=== PATIENT | male | born 1940 | race Caucasian/White ===

== ENCOUNTER → 2020-03-31 | Outpatient (CLI) | payer MEDICARE, OTHER, SELFPAY ==
--- NOTE | 2020-03-31 | IMM_PTH ---
PATIENT: KINGSTON KILGORE LOC: [facility] U#:[id number] AGE/SX: 79/M ROOM: RE03/31/[address]: Dr. Joel Pierson MD : 1940 BED: DIS: 03/31/2020 SPEC #: [id number] RECD: 04/01/20 13:34 STATUS: SOM REQ #: [id number] RUBY: 03/31/20 00:[address]: Joel Pierson DEPT: IMMUNOHISTOCHEMISTRY RECD BY: Cydney uLna ENTERED: 04/01/20 13:36 SP TYPE: IMMUNO OTHR DR: Dr. Karla Singh, DO Tissues: A - PROSTATE RIGHT C - PROSTATE RIGHT D - PROSTATE LEFT F - PROSTATE LEFT Procedures: 34BE12 (add) P40 (add) 34BE12 (initial) PHYSICIAN & INSTITUTION [place] [id number] SPECIMEN INFORMATION: Tissue Source: A - Right apex, C - Right base, D - Left apex, F - Left base Clinical Info: Elevated PSA Specimen Number: [id number] A, C, D & F CPT code: 96558, 25498 x7 METHODOLOGY: Deparaffinized sections of prefer/formalin-fixed tissue or PAP/DQ stained slides are incubated with monoclonal/polyclonal antibodies/oligonucleotide probes. Localization is made via biotin free immunoperoxidase method. Appropriate controls are performed and reacted as expected. Results on target cell population are indicated in the following table: RESULTS: ANTIBODY / CLONE RESULT Block A P40 (BC28) negative 34BE12 (34BE12) negative Block C P40 (BC28) negative * 34BE12 (34BE12) negative * Block D P40 (BC28) negative 34BE12 (34BE12) negative Block F P40 (BC28) negative 34BE12 (34BE12) negative *?Positive in the area of high grade prostatic intraepithelial neoplasia (HGPIN). These tests were developed and their performance characteristics determined by [facility]. They may not have been cleared or approved by the U.S. Food and Drug Administration. The FDA has determined that such clearance or approval is not necessary. The above immunohistochemical/dualISH markers are ordered and reviewed by the Pathologist. INTERPRETATION: A. Right prostate, apex, core biopsy: A minute fragment of adenocarcinoma. Focal atypical acinar proliferation. C. Right prostate, base, core biopsy: A minute focus of adenocarcinoma. Focal high-grade prostatic intraepithelial neoplasia (HGPIN). D. Left prostate, apex, core biopsy: Adenocarcinoma. F. Left prostate, base, core biopsy: Adenocarcinoma. SJ:nicole 04/02/20
--- NOTE | 2020-03-31 08:00 | PROSBIL_PTH ---
PATIENT: KINGSTON KILGORE LOC: [facility] U#:[id number] AGE/SX: 79/M ROOM: RE03/31/[address]: Dr. Joel Pierson MD : 1940 BED: DIS: 03/31/2020 SPEC #: [id number] RECD: 03/31/20 10:50 STATUS: SOM REBarbara #: [id number] RUBY: 03/31/20 08:[address]: Joel Pierson DEPT: SURGICAL PATHOLOGY RECD BY: Kee Bettencourt ENTERED: 03/31/20 13:18 SP TYPE: PROST BX WISAM DR: Dr. Karla Singh, DO Tissues: A - PROSTATE RIGHT B - PROSTATE RIGHT C - PROSTATE RIGHT D - PROSTATE LEFT E - PROSTATE LEFT F - PROSTATE LEFT Procedures: PROSTATE BX HEADER OPERATION: Prostate biopsy PRE-OP DIAGNOSIS: Elevated PSA TISSUE SUBMITTED: A - Right apex, B - Right mid, C - Right base, D - Left apex, E - Left mid, F - Left base MICROSCOPIC DIAGNOSIS A. Right prostate, apex, core biopsy: A minute focus of Prostatic adenocarcinoma. [place] grade: 3+3=6 Number of cores involved: 1/4 Proportion of tissue involved: <5% Perineural invasion: Not identified. Greatest tumor length: <0.1 cm, Focal atypical acinar proliferation. See comment. B. Right prostate, mid, core biopsy: Prostatic tissue, negative for malignancy. C. Right prostate, base, core biopsy: A minute focus of prostatic adenocarcinoma. [place] grade: 3+3=6 Number of cores involved: 1/2 Proportion of tissue involved: <5% Perineural invasion: Not identified. Greatest tumor length: <0.1 cm Focal high-grade prostatic intraepithelial neoplasia (HGPIN). See comment. D. Left prostate, apex, core biopsy: Prostatic adenocarcinoma. [place] grade: 3+3=6 Number of cores involved: 2/2 Proportion of tissue involved: ~5% Perineural invasion: Not identified. Greatest tumor length: 0.1 cm See comment. E. Left prostate, mid, core biopsy: Prostatic adenocarcinoma. Micheal grade: 5+3=8 Number of cores involved: 1/2 Proportion of tissue involved: ~40% Perineural invasion: present, focal Greatest tumor length: 0.7 cm, discontinuous Focal high-grade prostatic intraepithelial neoplasia (HGPIN). F. Left prostate, base, core biopsy: Prostatic adenocarcinoma. Micheal grade: 3+3=6 Number of cores involved: 1/3 Proportion of tissue involved: <5% Perineural invasion: Not identified. Greatest tumor length: 0.1cm Focal high-grade prostatic intraepithelial neoplasia (HGPIN). See comment. TRACY:nicole 04/01/20 COMMENT A, C, D & F - Immunohistochemistry ([id number]) supports the above diagnosis. Case has been reviewed in consultation with Dr. Vanessa who concurs with the above diagnosis. IDC:AM MICROSCOPIC DESCRIPTION Slides are reviewed. GROSS DESCRIPTION A - Received is one container designated prostate, right apex. The specimen consists of four elongated fragments of light verdugo-white soft tissue measuring 0.5 to 0.8 cm in length and 0.1 cm in diameter. The specimen is totally submitted in one cassette. B - Received is one container designated prostate, right mid. The specimen consists of two elongated fragments of light verdugo-white soft tissue measuring 1 and 1.4 cm in length and 0.1 cm in diameter. The specimen is totally submitted in one cassette. C - Received is one container designated prostate, right base. The specimen consists of two elongated fragments of light verdugo-white soft tissue measuring 1 and 1.5 cm in length and 0.1 cm in diameter. The specimen is totally submitted in one cassette. D - Received is one container designated prostate, left apex. The specimen consists of one elongated fragment of light verdugo-white soft tissue measuring 0.7 cm in length and 0.1 cm in diameter. The specimen is totally submitted in one cassette. E - Received is one container designated prostate, left mid. The specimen consists of two elongated fragments of light verdugo-white soft tissue each measuring 1.2 cm in length and 0.1 cm in diameter. The specimen is totally submitted in one cassette. F - Received is one container designated prostate, left base. The specimen consists of three elongated fragments of light verdugo-white soft tissue measuring 0.3 to 1.5 cm in length and 0.1 cm in diameter. The specimen is totally submitted in one cassette. / TRACY:nicole 03/31/20 TC:0 CPT: G0146
== END | disposition home or self-care (01) ==
LOC: LABSPEC 12:54
PROVIDERS: PCP Family Medicine; Visit Provider Urology
DX: R97.20 Elevated prostate specific antigen [PSA] (principal)
CPT/HCPCS: 88305; 88341; 88342; G0416

== ENCOUNTER → 2020-04-09 07:13 | Outpatient (CLI) | payer MEDICARE, OTHER, SELFPAY ==
--- NOTE | 2020-04-09 07:17 | CT_ITS ---
STUDY: CT ABDOMEN AND PELVIS WITH AND WITHOUT CONTRAST REASON FOR EXAM: Male, 79 years old. NEOPLASM OF PROSTATE, NEW DX, ELEV PSA, PROSTATE BX ONE WEEK AGO -- (HAD TO DO C-/C+ DUE TO INSURANCE COVERAGE) RADIATION DOSAGE (If Supplied By Facility): CTDIvol = ( 11.83 ) mGy, DLP = ( 668.72 ) mGycm TECHNIQUE: Transaxial images were obtained from the dome of the diaphragm to the symphysis pubis without oral contrast. IV 100mL Isovue-300 was administered. Sagittal and coronal images were reconstructed. Individualized dose optimization techniques were used for this CT. COMPARISON: None. FINDINGS: The visualized lung bases are unremarkable. The visualized portions of the heart are within normal limits. There is a 4.7 mm hypodensity in the anterior aspect of the right lumbar liver suggestive of a small cyst. Normal gallbladder and extrahepatic biliary system. Normal spleen. 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 Normal pancreas. Normal bilateral adrenal glands. Normal right kidney. Normal left kidney. There is a small hiatal hernia. Normal small intestine. There are scattered colonic diverticula consistent with diverticulosis. Moderate amount of fecal material is seen in the left hemicolon. The appendix is visualized and appears normal. There is diffuse atherosclerotic calcification of the abdominal aorta and visceral branches, without a demonstrated aneurysm. Normal inferior vena cava. Normal retroperitoneum. Normal urinary bladder. There is inhomogeneous enlargement of the prostate. The prostate is enlarged. It measures 4.4 sinus by 5.6 cm. It causes indentation at the bladder base more prominent on the left side. Focal calcification is seen in the left side of the prostate. There is a right-sided inguinal hernia containing adipose tissue. There are degenerative changes of the visualized lumbar spine. CT/CT Abd/Pelvis W/WO Contrast IMPRESSION: Inhomogeneous prostatic enlargement with indentation at the bladder base. Scattered sigmoid diverticula. Small hiatal hernia. Electronically Signed: Shawn South, at 8:49 EDT , Service support ,
[2020-04-09 07:30] LABS: CREATININE FINGERSTICK 0.7 mg/dL (0.70-1.30); EGFR FINGERSTICK > 60.0000 mL/min (>60)
== END ==
PROVIDERS: PCP Family Medicine; Referring Provider Urology; Visit Provider Urology
DX: C61 Malignant neoplasm of prostate (principal)
CPT/HCPCS: 74178; Q9967

== ENCOUNTER → 2020-04-13 08:30 | Outpatient (CLI) | payer MEDICARE, OTHER, SELFPAY ==
--- NOTE | 2020-04-13 08:32 | NM_ITS ---
CLINICAL: 79-year-old male with reported history of carcinoma of the prostate. WHOLE BODY 99m Tc MDP RADIONUCLIDE BONE SCINTIGRAPHY COMPARISON: CT of the abdomen-pelvis report 04/09/2020 FINDINGS: Following the intravenous administration of approximately 25.0 mCi of 99m Tc MDP, whole body bone images reveal: 1. Increased radiopharmaceutical concentration is identified in the right elbow, the right wrist, bilateral knees, both ankle articulations, posterior midline sacrum. 2. The remaining skeletal structures are scintigraphically unremarkable with normal-appearing renal images and urinary bladder activity identified. NM/Bone Scan Whole Body IMPRESSION: 1. The increase in radiopharmaceutical concentration defined in the right elbow, right wrist, bilateral knees, right-left ankles and sacrum is most consistent with degenerative arthritis. 2. There is no definitive typical scintigraphic evidence of diffuse axial skeletal metastatic disease on the current examination. Electronically Signed: Cameron Strickland DO at 22:09 EDT Tel , Service support ,
== END ==
PROVIDERS: PCP Family Medicine; Referring Provider Urology; Visit Provider Urology
DX: C61 Malignant neoplasm of prostate (principal)
CPT/HCPCS: 78306

== ENCOUNTER 2020-05-15 06:20 | Day surgery (SDC) | payer MEDICARE, OTHER, SELFPAY ==
[2020-04-16 10:02] VITALS: BMI 24.3
--- NOTE | 2020-05-07 08:37 | EKG12_ITS ---
Test Reason : PRE OP Blood Pressure : / mmHG Vent. Rate : 060 BPM Atrial Rate : 060 BPM P-R Int : 166 ms QRS Dur : 072 ms QT Int : 402 ms P-R-T Axes : 068 -16 052 degrees QTc Int : 402 ms Normal sinus rhythm Normal ECG Confirmed by JORDI ZURITA, VALARIE ([id number]), supervising editor news reel DARRIN COSME ([id number]) on 05/11/2020 8:54:59 A M Referred By: Joel Pierson Confirmed By:FAN BACON MD
[2020-05-07 10:14] LABS: Hematocrit 44.4 % (40-54); Hemoglobin 14.5 g/dL (13.0-16.5); Mean Corp Hgb Conc 32.7 g/dL (32-36); Mean Corpuscular Hgb 31.6 pg (27.0-32.0); Mean Corpuscular Volume 96.7 fL (80-94); Mean Platelet Vol. 10.9 fl (6.2-12.0); Platelet Count 199 K/mm3 (150-450); RBC Distribution Width SD 46.1 fl (35.1-43.9); Red Blood Count 4.59 M/mm3 (4.6-6.2); White Blood Count 4.9 K/mm3 (4.4-11.0)
[2020-05-07 10:39] LABS: Anion Gap 5 (5-15); BUN 28 mg/dL (7-18); BUN/Creat Ratio 23.7 RATIO (10-20); Calcium,Total 8.7 mg/dL (8.5-10.1); Chloride 104 mmol/L (98-107); Creatinine, Serum 1.18 mg/dL (0.70-1.30); EST Glomerular Filtration Rate 63 mL/min (>60); Est Glom Filt Rate - Afr Amer 77 mL/min (>60); Glucose 73 mg/dL (74-106); Potassium 4.4 mmol/L (3.5-5.1); Sodium Level 136 mmol/L (136-145)
[2020-05-15] VITALS (7 sets, daily range): BP systolic 113–131; BP diastolic 58–73; PULSE 55–57; RESP 14–18; TEMP 36.1–36.6; O2SAT 85–100; BMI 23.8
--- NOTE | 2020-05-15 07:38 | PCM.HP.STD ---
Problem List (1) Prostate cancer Status: Acute History of Present Illness Date of Admission: 05/15/20 Chief Complaint: Prostate cancer The patient is a 79 year old male with a history of high-grade prostate cancer he is in the undergo treatment with radiation therapy we plan to place gold markers in the prostate for localization and spacer gel matrix to decrease rectal toxicity. Past Medical History Medical History: Medical History (Last Updated 04/16/20 @ 09:59 by Aliyah Maher RN) Prostate cancer C61 Skin cancer C44.90 Allergies No Known Allergies Allergy (Unverified 05/05/20 08:11) Home Medications: Ambulatory Orders Medication Instructions Recorded Calcium Citrate/Vitamin D3 2 ea PO BID 05/05/20 [Citracal + D Maximum Caplet] Surgical History: no surgical history Smoking Status: Former smoker Tobacco Use: Non-smoker Review of Systems Constitutional: Denies: Chills, Fever, Weight Change HEENT: Denies: Head Aches, Sinus Congestion, Sinus Drainage Cardiovascular: Denies: Chest Pain, Palpitations Respiratory: Denies: Cough, Shortness of breath at rest, Sputum production Gastrointestinal: Denies: Abdominal Pain, Nausea, Vomiting Genitourinary: Denies: Dysuria Musculoskeletal: Denies: Joint Pain, Joint Tenderness Skin: Denies: Rash, Wounds Neurological: Denies: Numbness, Tingling, Focal weakness Psychiatric: Denies: Anxiety, Depression, Homicidal Ideations, Suicidal Ideations Hematologic/ Lymphatic: Denies: Easy Bruising, Easy Bleeding VTE Information - Inpt Only VTE Present on Admission: No - Physical Exam Vitals/I&O's: Vital Signs Temp Pulse Resp BP Pulse Ox 97.6 F L 57 L 14 129/73 H 96 05/15/20 06:43 05/15/20 06:43 05/15/20 06:43 05/15/20 06:43 05/15/20 06:43 Oxygen Delivery Method Room Air Weight: 66.8 kg Body Mass Index (BMI) 23.8 General: Alert, Oriented x3, Cooperative HEENT: Atraumatic, PERRLA, EOMI, Normocephalic Neck: Supple, No JVD, Negative Carotid Bruits Lungs: Clear to auscultation, Normal air movement Cardiovascular: Regular rate, No murmurs Abdomen: Bowel Sounds Present, Soft, Non Tender Extremities: No edema, Capillary Refill Less than 3 Seconds Skin: No rashes, No breakdown Musculoskeletal: No Tenderness to Palpation of Joints or Extremities Neurological: Cranial nerves II-XII grossly intact Psych/Mental Status: Normal Affect, Appropriate Current Medications Cefazolin Sodium 2 gm/ Sodium (Chloride) 110 mls @ 150 mls/hr IV PREOP ONE Stop: 05/15/20 09:13 Lactated Ringer's () 1,000 mls @ 100 mls/hr IV .Q10H MAUREEN Assessment/Plan All Active Problems (Last Updated 04/16/20 @ 09:59 by Aliyah Maher RN) Prostate cancer (Acute) Plan to proceed with placement of gel spacer to separate the rectum off the prostate and also placement of gold fiducial markers.
--- NOTE | 2020-05-15 07:40 | DCINST_ITS ---
Discharge Diet: Light diet - advance as tolerated Discharge Activity: Return to Normal Activity Allergies/Adverse Reactions: Allergies No Known Allergies Allergy (Unverified 05/05/20 08:11) Medications to take at Discharge Calcium Citrate/Vitamin D3 [Citracal + D Maximum Caplet] 2 ea PO BID 05/05/20 Primary Care Physician: Karla Singh DO [Primary Care Provider] - Test Results: Test results from this visit will be discussed in further detail at your follow- up appointment, if applicable. Please Follow Up With: Joel Pierson MD When: keep appt for next hormone shot.
[2020-05-15] MEDS: Lubricating Jelly 60 GM Tube 30 GM TOPICAL (08:38)
[2020-05-15] MEDS: 0.9% Normal Saline (Pres. free 10 ML Vial (08:38)
[2020-05-15] MEDS: Cefazolin 2 GM in 0.9% Normal Saline 100 ML IV (08:38)
[2020-05-15] MEDS: Lactated Ringers 1,000 ML 100 ML IV (08:40)
--- NOTE | 2020-05-15 08:45 | PCM.OPRPT ---
Problem List (1) Prostate cancer Status: Acute Report of Operation Date of Procedure: 05/15/20 Pre-Operative Diagnosis: Prostate cancer Post-Operative Diagnosis: Same Surgery/Procedure Performed:: Transrectal ultrasound-guided placement of gold fiducial markers for radiation planning. Transrectal ultrasound-guided placement of spacer organ at risk gel matrix Description of Surgical Findings:: 79-year-old male was taken back to the operating room at the smooth induction of general anesthesia he was placed in dorsolithotomy position the testicles were taped to the abdomen with an Ioband. The perineum was shaved. We then placed a ultrasound probe into the rectum with a biplanar ultrasound probe. I then performed ultrasonography of the prostate identified the prostate base mid and apex. Used then the gold fiducial markers were implanted the prostate the first marker was placed at the left side and mid prostate and the second marker on the right side mid prostate and the third marker at the apex of the prostate after 3 gold fiducial markers were placed in the prostate for radiation treatments I then prepared the spacer organ at gel matrix in the back table per the materials supervisor's instruction. I then used the bevel needle down guide into the space between the rectum and the prostate to identify Denonvilliers' fascia. Once I encountered that space then I injected saline into that space and this created a nice separation between the rectum and the prostate then once this space was identified then I injected the gel matrix over the course of 10 seconds and there was nice separation between the rectum and the prostate with the gel matrix after this was accomplished and I removed the needle the ultrasound probe was removed and the patient was taken out of anesthesia cleaned and taken back to PACU in good condition. Type of Anesthesia:: General - Admit VTE Documentation VTE Present on Admission: No VTE Mechan Device Prophylaxis: SCD's
== END 2020-05-15 09:56 | disposition home or self-care (01) ==
LOC: SDC 06:21 → AC 06:22
PROVIDERS: Anesthesiology; PCP Family Medicine; Referring Provider Urology; Visit Provider Urology
PROC: (CPT 55874; principal; 2020-05-15 08:15)
DX: C61 Malignant neoplasm of prostate (principal); Z11.59 Encounter for screening for other viral diseases; Z85.828 Personal history of other malignant neoplasm of skin; Z87.891 Personal history of nicotine dependence
CPT/HCPCS: 00902; 55874; 55876; 36415; 80048; 85027; 87635; 93005; C9803; J7120; J2405; J3490; U0003

== ENCOUNTER → 2020-05-22 07:52 | Outpatient (CLI) | payer MEDICARE, OTHER, SELFPAY ==
[2020-04-16 10:02] VITALS: BMI 24.3
[2020-05-15 06:43] VITALS: BMI 23.8
--- NOTE | 2020-05-22 07:53 | MRI_ITS ---
STUDY: MR PELVIS WITHOUT CONTRAST REASON FOR EXAM: Male, 79 years old. Prostate CA, evaluate and amp; assess disease. ATTN: prostate TECHNIQUE: Standardized fat and water weighted pulse sequences were obtained in all 3 orthogonal planes. COMPARISON: None. FINDINGS: Examination is mildly limited, dynamic and parametric sequences were not performed and characterization of prostate architecture with respect to possible underlying neoplastic nodules is not possible. Prostate measures 5 cm in transverse and 3.4 cm in AP dimension and 4.7 cm in craniocaudad dimension. Periprostatic space is normal. There is no lower pelvic lymphadenopathy. The gland is diffusely nodular, likely in part due to benign hyperplasia. Bladder and rectum are normal. There is presumed hydrogel spacer interposed between the prostate and rectum. MRI/Pelvis (Routine) IMPRESSION: 1. Nodular prostate, BPH and/or prostate cancer. 2. Rectal Spacer in place. Electronically Signed: Patrick Montelongo, at 16:32 EDT Tel , Service support ,
--- NOTE | 2020-05-22 08:30 | RAD_ITS ---
STUDY: X-RAY - ORBITS REASON FOR EXAM: Male, 79 years old. Mri clearance. Hx metal TECHNIQUE: 2 view(s) of the orbits were obtained. COMPARISON: None. FINDINGS: Normal bilateral orbits without a metallic orbital foreign body. Normal visualized facial bones. Normal paranasal sinuses. The soft tissue structures are unremarkable. RAD/Orbits for Foreign Body IMPRESSION: No demonstrated metallic orbital foreign body. The patient is cleared for an MRI examination. Electronically Signed: Shawn South, at 9:10 EDT , Service support ,
== END ==
PROVIDERS: PCP Family Medicine; Referring Provider Student in an Organized Health Care Education/Training Program; Visit Provider Student in an Organized Health Care Education/Training Program
DX: C61 Malignant neoplasm of prostate (principal)
CPT/HCPCS: 70030; 72195; 77014; 77290; Q9967

== ENCOUNTER → 2020-12-30 13:53 | Outpatient (CLI) | payer MEDICARE, OTHER, SELFPAY ==
[2020-04-16 10:02] VITALS: BMI 24.3
[2020-06-25 09:17] VITALS: BMI 25.4
[2021-01-01 17:30] LABS: PSA, Total <0.1 ng/mL (0.0-4.0)
== END ==
PROVIDERS: PCP Family Medicine; Visit Provider Student in an Organized Health Care Education/Training Program
DX: C61 Malignant neoplasm of prostate (principal)
CPT/HCPCS: 36415; 84153

== ENCOUNTER → 2021-07-01 09:04 | Outpatient (CLI) | payer MEDICARE, OTHER, SELFPAY ==
[2020-04-16 10:02] VITALS: BMI 24.3
[2021-07-01 10:16] LABS: PSA,Total- Diagnostic < 0.01 ng/mL (0.0-4.0)
== END ==
PROVIDERS: PCP Family Medicine; Referring Provider Urology; Visit Provider Urology
DX: C61 Malignant neoplasm of prostate (principal)
CPT/HCPCS: 36415; 84153

== ENCOUNTER → 2022-01-18 | Outpatient (CLI) | payer MEDICARE, OTHER, SELFPAY ==
[2020-04-16 10:02] VITALS: BMI 24.3
[2022-01-19 17:43] LABS: PSA, Total <0.1 ng/mL (0.0-4.0)
== END | disposition home or self-care (01) ==
LOC: LAB 09:18
PROVIDERS: PCP Family Medicine; Referring Provider Student in an Organized Health Care Education/Training Program; Visit Provider Student in an Organized Health Care Education/Training Program
DX: C61 Malignant neoplasm of prostate (principal)
CPT/HCPCS: 36415; 84153

== ENCOUNTER → 2022-08-11 | Outpatient (CLI) | payer MEDICARE, OTHER, SELFPAY ==
[2020-04-16 10:02] VITALS: BMI 24.3
[2022-08-11 08:53] LABS: PSA,Total- Diagnostic 0.04 ng/mL (0.0-4.0)
== END | disposition home or self-care (01) ==
PROVIDERS: PCP Family Medicine; Referring Provider Urology; Visit Provider Urology
DX: C61 Malignant neoplasm of prostate (principal)
CPT/HCPCS: 36415; 84153

== ENCOUNTER → 2023-02-09 | Outpatient (CLI) | payer MEDICARE, OTHER, SELFPAY ==
[2020-04-16 10:02] VITALS: BMI 24.3
[2023-02-09 16:27] LABS: PSA,Total- Diagnostic 0.08 ng/mL (0.0-4.0)
== END | disposition home or self-care (01) ==
LOC: LAB 15:29
PROVIDERS: Student in an Organized Health Care Education/Training Program; PCP Family Medicine; Referring Provider Registered Nurse; Visit Provider Registered Nurse
DX: C61 Malignant neoplasm of prostate (principal)
CPT/HCPCS: 36415; 84153

== ENCOUNTER → 2023-08-14 | Outpatient (CLI) | payer MEDICARE, OTHER, SELFPAY ==
[2020-04-16 10:02] VITALS: BMI 24.3
--- OUTSIDE RECORDS SUMMARY | 2023-08-14 08:54 | XMS RPT_ITS | CCD ---
Author Name Unknown Address [address] [place] [address] Organization [facility] Results Test Name Value Interpretation Reference Range Facil ity Summary Purpose Family History No Family History Records Found Advance Directives No Advanced Directives Records Found Additional Source Comments (unrecognized sect ion and content) No Status Records Found INFORMATION SOURCE (unrecogn ized section and content) FOR RECORDS PERTAINING TO PATIENTS WHO ARE OR HAVE BEEN ENROLLED IN A CHEMICAL DEPENDENCY/SUBSTANCEABUSE PROGRAM, SOME INFORMATION MAY BE OMITTED. This clinical summary was aggregated from multiple sources. Caution should be exercised in using it in the provision of clinical care. This summary normalizes information from multiple sources, and as a consequence, information in this document may materially change the coding, format and clinical context of patient data. In addition, data may be omitted in some cases. CLINICAL DECISIONS SHOULD BE BASED ON THE PRIMARY CLINICAL RECORDS. [employer] provides no warranty or guarantee of the accuracy or completeness of information in this document.
[2023-08-14 09:13] LABS: PSA,Total- Diagnostic 0.09 ng/mL (0.0-4.0)
== END | disposition home or self-care (01) ==
LOC: LAB 08:09
PROVIDERS: PCP Family Medicine; Referring Provider Urology; Visit Provider Urology
DX: C61 Malignant neoplasm of prostate (principal)
CPT/HCPCS: 36415; 84153

== ENCOUNTER → 2024-05-16 | Outpatient (CLI) | payer MEDICARE, OTHER, SELFPAY ==
[2020-04-16 10:02] VITALS: BMI 24.3
== END | disposition home or self-care (01) ==
LOC: LAB 11:17
PROVIDERS: PCP Family Medicine; Referring Provider Urology; Visit Provider Urology
DX: C61 Malignant neoplasm of prostate (principal)
CPT/HCPCS: 36415; 84153